=== PATIENT | male | born 1960 | race Caucasian/White ===

== ENCOUNTER 2022-12-26 15:45 | Emergency (ER) | payer BC ==
[2022-12-26] MEDS ORDERED: Sodium Chloride 0.9% 10 ML Syringe FLUSH PRN (16:08)
[2022-12-26 16:55] LABS: ESTIMATED GFR 68 mL/min (>60)
== END 2022-12-26 18:07 | disposition home or self-care (01) ==
LOC: FB.ED 15:45
DX: M54.10 Radiculopathy, site unspecified (principal); I10 Essential (primary) hypertension; Z91.041 Radiographic dye allergy status
CPT/HCPCS: 36415; 70450; 71045; 80053; 82947; 84484; 85025; 85610; 85730; 93005; 99284

== ENCOUNTER 2025-08-19 06:38 | Day surgery (SDC) | payer BC, OTHER ==
[2025-08-19] MEDS ORDERED: fentaNYL 100 MCG/2 ML SDV IV ONE (06:39)
[2025-08-19] MEDS ORDERED: Midazolam 1 MG/ML 2 ML SDV IV ONE (06:39)
[2025-08-19] MEDS ORDERED: Sodium Chloride 0.9% 10 ML Syringe FLUSH PRN (06:50)
[2025-08-19] MEDS: Lactated Ringers 1,000 ML IV SCH (07:35)
[2025-08-19] MEDS: acetaZOLAMIDE 500 MG Cap.ER PO ONE (09:20)
== END 2025-08-19 09:40 | disposition home or self-care (01) ==
LOC: FB.SDS 06:38
PROVIDERS: ATTEND Ophthalmology
DX: E11.36 Type 2 diabetes mellitus with diabetic cataract (principal); H26.9 Unspecified cataract; H40.1111 Primary open-angle glaucoma, right eye, mild stage; E11.22 Type 2 diabetes mellitus with diabetic chronic kidney disease; I12.9 Hypertensive chronic kidney disease with stage 1 through stage 4 chronic kidney disease, or unspecified chronic kidney disease; N18.30 Chronic kidney disease, stage 3 unspecified; G47.33 Obstructive sleep apnea (adult) (pediatric); E78.9 Disorder of lipoprotein metabolism, unspecified; Z88.8 Allergy status to other drugs, medicaments and biological substances; Z87.891 Personal history of nicotine dependence; Z79.899 Other long term (current) drug therapy
CPT/HCPCS: 00142; 82947; A9270-GY; C1783; J2250; J3010; J7120; V2632

== ENCOUNTER 2025-09-02 07:10 | Day surgery (SDC) | payer OTHER ==
[2025-09-02] MEDS ORDERED: Midazolam 1 MG/ML 2 ML SDV IV ONE (07:11)
[2025-09-02] MEDS ORDERED: fentaNYL 100 MCG/2 ML SDV IV ONE (07:11)
[2025-09-02] MEDS ORDERED: Sodium Chloride 0.9% 10 ML Syringe FLUSH PRN (07:30)
[2025-09-02] MEDS: Lactated Ringers 1,000 ML IV PRN (07:54)
[2025-09-02] MEDS: acetaZOLAMIDE 500 MG Cap.ER PO ONE (09:50)
== END 2025-09-02 10:35 ==
LOC: FB.SDS 07:10
PROVIDERS: ATTEND Ophthalmology
DX: E11.36 Type 2 diabetes mellitus with diabetic cataract (principal); H25.813 Combined forms of age-related cataract, bilateral; H40.1121 Primary open-angle glaucoma, left eye, mild stage; E11.22 Type 2 diabetes mellitus with diabetic chronic kidney disease; I12.9 Hypertensive chronic kidney disease with stage 1 through stage 4 chronic kidney disease, or unspecified chronic kidney disease; N18.30 Chronic kidney disease, stage 3 unspecified; Z79.899 Other long term (current) drug therapy; Z87.891 Personal history of nicotine dependence
CPT/HCPCS: 00142; A9270-GY; J2250; J3010; J7120; V2632